=== PATIENT | male | born 1960 | race Caucasian/White ===

== ENCOUNTER 2020-05-15 07:58 | Day surgery (SDC) | payer MEDICAID ==
[~2020-05-15] VITALS: Ht 175.3 cm; Wt 116.2 kg
[2020-05-15] VITALS (7 sets, daily range): BP systolic 104–143; BP diastolic 61–85
[2020-05-15] MEDS ORDERED: normal saline 1000ml 1,000 ML IV ONE (08:35)
[2020-05-15] MEDS ORDERED: cefazolin/dext.iso 2gm/50ml 50 ML IV ONE (08:35)
[2020-05-15] MEDS ORDERED: VANCOMYCIN 1,500MG inj. 1,500 MG in normal saline 500ml IV soln 300 ML IV ONE (08:35)
[2020-05-15] MEDS ORDERED: midazolam 2 mg/2 ml injection ONE ×3 (08:43→09:38)
[2020-05-15] MEDS ORDERED: fentaNYL/PF 50MCG/1 ML 2ML syringe ONE (08:43)
[2020-05-15] MEDS ORDERED: ceFAZolin 2gm in dextrose, iso 50 ML IV ONE (08:43)
[2020-05-15] MEDS ORDERED: LIDOcaine 1% W/epiNEPHrine 1:100,000 20ml vial ONE (08:43)
[2020-05-15] MEDS ORDERED: TERA5CAP4 PO (08:44)
[2020-05-15] MEDS ORDERED: NAPR-56 PO (08:44)
[2020-05-15] MEDS ORDERED: SPIR25TA5 PO (08:44)
[2020-05-15] MEDS ORDERED: GABA300C PO (08:44)
[2020-05-15] MEDS ORDERED: ASPI-1265 PO (08:44)
[2020-05-15] MEDS ORDERED: ALB0.5UD IH (08:44)
[2020-05-15] MEDS ORDERED: FLO0.4C PO (08:44)
[2020-05-15] MEDS ORDERED: AMIT-189 PO (08:44)
[2020-05-15] MEDS ORDERED: AMLO10TA48 PO (08:44)
[2020-05-15] MEDS ORDERED: ATOR20TA PO (08:44)
[2020-05-15] MEDS ORDERED: METF500T PO (08:44)
[2020-05-15] MEDS ORDERED: BENA40TA73 PO (08:44)
[2020-05-15] MEDS ORDERED: CARV-50 PO (08:44)
[2020-05-15] MEDS ORDERED: OXYC-150 PO (08:44)
[2020-05-15] MEDS ORDERED: MORP20CA20 PO (08:44)
[2020-05-15] MEDS ORDERED: FURO-149 PO (08:44)
[2020-05-15] MEDS ORDERED: CITA40TA22 PO (08:44)
[2020-05-15] MEDS ORDERED: ZOLP5TAB8 PO (08:44)
[2020-05-15 09:20] LABS: BASOPHILS # (AUTO) 0.1 X10'3 (0-0.2); EOSINOPHILS # (AUTO) 0.2 X10'3 (0-0.9); EOSINOPHILS % (AUTO) 2.5 % (0-6); HEMATOCRIT 41.4 % (42.0-52.0); HEMOGLOBIN 14.2 g/dl (14.0-17.9); LYMPHOCYTES # (AUTO) 2.2 X10'3 (1.1-4.8); LYMPHOCYTES % (AUTO) 27.2 % (21-51); MEAN CORPUSCULAR HEMOGLOBIN 32.5 PG (27.0-31.0); MEAN CORPUSCULAR HGB CONC 34.3 g/dL (33.0-36.5); MEAN CORPUSCULAR VOLUME 94.9 FL (78-98); MEAN PLATELET VOLUME 8.7 FL (7.4-10.4); MONOCYTES # (AUTO) 0.8 X10'3 (0-0.9); MONOCYTES % (AUTO) 9.3 % (2-12); NEUTROPHILS # (AUTO) 4.9 X10'3 (1.8-7.7); PLATELET COUNT 198 X10'3 (140-440); RED BLOOD COUNT 4.37 X10'6 (4.70-6.10); RED CELL DISTRIBUTION WIDTH 13.6 % (11.5-14.5); WHITE BLOOD COUNT 8.2 X10'3 (4.5-11.0)
--- NOTE | 2020-05-15 09:20 | NUR ---
pt off floor for procedure.
[2020-05-15] MEDS ORDERED: ceFAZolin 1000mg inj ONE (09:28)
[2020-05-15 09:33] LABS: ALBUMIN 3.8 G/DL (3.4-5.0); ANION GAP 6 (8-16); BLOOD UREA NITROGEN 24 MG/DL (7-18); BUN/CREATININE RATIO 20.3 (5.4-32.0); CALCIUM 8.2 MG/DL (8.5-10.1); CHLORIDE 103 MMOL/L (99-107); CREATININE 1.18 MG/DL (0.60-1.10); GLUCOSE 99 MG/DL (70-104); MAGNESIUM 2.1 MG/DL (1.5-2.4); POTASSIUM 4.2 MMOL/L (3.5-5.1); SODIUM 138 MMOL/L (135-145); TOTAL CARBON DIOXIDE 29.1 MMOL/L (24-32); eGFR 63 ML/MIN
[2020-05-15] MEDS ORDERED: GABA-530 PO (11:44)
[2020-05-15] MEDS ORDERED: gabapentin 300mg capsule PO SCH (11:54)
[2020-05-15] MEDS ORDERED: oxyCODONE/APAP 10/325mg tablet PO PRN (11:55)
== END 2020-05-15 12:20 | disposition home or self-care (01) ==
LOC: SSTAY O 07:58
PROVIDERS: ATTEND Internal Medicine Cardiovascular Disease
DX: T82.897A Other specified complication of cardiac prosthetic devices, implants and grafts, initial encounter (principal); I10 Essential (primary) hypertension; E11.9 Type 2 diabetes mellitus without complications; E78.5 Hyperlipidemia, unspecified; G47.30 Sleep apnea, unspecified; Z79.899 Other long term (current) drug therapy; Z79.01 Long term (current) use of anticoagulants; Y83.8 Other surgical procedures as the cause of abnormal reaction of the patient, or of later complication, without mention of misadventure at the time of the procedure; Y92.89 Other specified places as the place of occurrence of the external cause
CPT/HCPCS: 33222; 36415; 80048; 83735; 85025; 85610; 87070; 93005; 99152; 99153; C1894; J0690; J2250; J3010; J7030; A4620; A6449

== ENCOUNTER 2020-05-29 10:28 | Day surgery (SDC) | payer MEDICAID ==
[~2020-05-29] VITALS: Ht 175.3 cm; Wt 117.0 kg
[2020-05-29] VITALS (8 sets, daily range): BP systolic 98–144; BP diastolic 62–86
[~2020-05-29 10:28] MED LIST: ALB0.5UD IH; AMIT-189 PO; AMLO10TA48 PO; ASPI-1265 PO; ATOR20TA PO; BENA40TA73 PO; CARV-50 PO; CITA40TA22 PO; FLO0.4C PO; FURO-149 PO; GABA-530 PO; METF500T PO; MORP20CA20 PO; NAPR-56 PO; OXYC-150 PO; SPIR25TA5 PO; TERA5CAP4 PO; ZOLP5TAB8 PO
[2020-05-29] MEDS ORDERED: cefazolin/dext.iso 2gm/50ml 100 ML IV ONE (10:45)
[2020-05-29 10:58] LABS: BASOPHILS # (AUTO) 0.1 X10'3 (0-0.2); BASOPHILS % (AUTO) 1.3 % (0-1); EOSINOPHILS # (AUTO) 0.2 X10'3 (0-0.9); EOSINOPHILS % (AUTO) 2.1 % (0-6); HEMATOCRIT 43.1 % (42.0-52.0); HEMOGLOBIN 14.7 g/dl (14.0-17.9); LYMPHOCYTES # (AUTO) 2.2 X10'3 (1.1-4.8); LYMPHOCYTES % (AUTO) 28.1 % (21-51); MEAN CORPUSCULAR HEMOGLOBIN 32.4 PG (27.0-31.0); MEAN CORPUSCULAR HGB CONC 34.2 g/dL (33.0-36.5); MEAN CORPUSCULAR VOLUME 94.7 FL (78-98); MEAN PLATELET VOLUME 9.2 FL (7.4-10.4); MONOCYTES # (AUTO) 0.7 X10'3 (0-0.9); MONOCYTES % (AUTO) 9.4 % (2-12); NEUTROPHILS # (AUTO) 4.6 X10'3 (1.8-7.7); NEUTROPHILS % (AUTO) 59.1 % (42-75); PLATELET COUNT 203 X10'3 (140-440); RED BLOOD COUNT 4.55 X10'6 (4.70-6.10); RED CELL DISTRIBUTION WIDTH 13.3 % (11.5-14.5); WHITE BLOOD COUNT 7.8 X10'3 (4.5-11.0)
[2020-05-29 11:23] LABS: ANION GAP 10 (8-16); BLOOD UREA NITROGEN 20 MG/DL (7-18); BUN/CREATININE RATIO 21.1 (5.4-32.0); CALCIUM 8.5 MG/DL (8.5-10.1); CHLORIDE 102 MMOL/L (99-107); CREATININE 0.95 MG/DL (0.60-1.10); GLUCOSE 105 MG/DL (70-104); MAGNESIUM 2.2 MG/DL (1.5-2.4); POTASSIUM 4.1 MMOL/L (3.5-5.1); SODIUM 137 MMOL/L (135-145); TOTAL CARBON DIOXIDE 25.4 MMOL/L (24-32); eGFR 81 ML/MIN
[2020-05-29] MEDS ORDERED: vancomycin 1,000mg inj ONE (11:31)
[2020-05-29] MEDS ORDERED: midazolam 2 mg/2 ml injection ONE ×8 (11:31→13:38)
[2020-05-29] MEDS ORDERED: fentaNYL/PF 50MCG/1 ML 2ML syringe ONE ×4 (11:31→13:08)
[2020-05-29] MEDS ORDERED: LIDOcaine 1% W/epiNEPHrine 1:100,000 20ml vial ONE (11:31)
[2020-05-29] MEDS ORDERED: proCHLORperazine 10 MG/2 ml inj ONE (12:05)
[2020-05-29] MEDS ORDERED: diphenhydrAMINE 50 mg/ml inj ONE (12:34)
[2020-05-29] MEDS ORDERED: HYDROmorphone 1 mg/ml syringe ONE ×2 (13:12→13:46)
[2020-05-29] MEDS ORDERED: normal saline 1000ml 1,000 ML IV ONE (14:30)
== END 2020-05-29 17:00 | disposition home or self-care (01) ==
LOC: SSTAY O 10:28
PROVIDERS: ATTEND Internal Medicine Cardiovascular Disease
DX: T82.7XXA Infection and inflammatory reaction due to other cardiac and vascular devices, implants and grafts, initial encounter (principal); I10 Essential (primary) hypertension; E11.9 Type 2 diabetes mellitus without complications; E78.5 Hyperlipidemia, unspecified; G47.30 Sleep apnea, unspecified; Z79.899 Other long term (current) drug therapy; Z79.01 Long term (current) use of anticoagulants; Z79.2 Long term (current) use of antibiotics; Y82.8 Other medical devices associated with adverse incidents; Y92.89 Other specified places as the place of occurrence of the external cause
CPT/HCPCS: 33233; 33235; 36415; 80048; 82948; 83735; 85025; 85610; 86885; 86900; 86901; 86920; 93005; 99152; 99153; C1769; C1773; C1894; J0780; J1170; J1200; J2250; J3010; J3370; A4620; A6258; A6260; A6449

== ENCOUNTER 2020-06-12 11:43 | Day surgery (SDC) | payer MEDICAID ==
[~2020-06-12] VITALS: Ht 170.2 cm; Wt 115.7 kg
[2020-06-12] MEDS ORDERED: VANCOMYCIN 1,500MG inj. 1,500 MG in normal saline 500ml IV soln 300 ML IV ONE (12:03)
[2020-06-12] MEDS ORDERED: normal saline 1000ml 1,000 ML IV SCH (12:05)
[2020-06-12] MEDS ORDERED: cefazolin/dext.iso 2gm/50ml 50 ML IV ONE (12:05)
[2020-06-12 12:45] VITALS: BP 110/67
--- NOTE | 2020-06-12 13:30 | NUR ---
Dr. Briseno at bedside. EKG reviewed, pt's heart rhythm NSR, no 3rd degree block. Procedure cancelled. Addendum: 06/12/20 at 1350 by Sarah Beck RN Dr. Briseno instructed pt to go to MD's office after discharge from hospital.
== END 2020-06-12 13:45 | disposition home or self-care (01) ==
LOC: SSTAY O 11:43
PROVIDERS: ATTEND Internal Medicine Cardiovascular Disease
DX: I44.0 Atrioventricular block, first degree (principal); Z53.8 Procedure and treatment not carried out for other reasons; R42 Dizziness and giddiness; Z95.0 Presence of cardiac pacemaker
CPT/HCPCS: 93005

== ENCOUNTER 2020-07-14 10:44 | Day surgery (SDC) | payer MEDICAID ==
[2020-07-14] VITALS (7 sets, daily range): BP systolic 92–133; BP diastolic 49–79
[~2020-07-14] VITALS: Ht 170.2 cm; Wt 115.0 kg
[2020-07-14] MEDS ORDERED: ceFAZolin 2gm in dextrose, iso 50 ML IV ONE ×2 (11:05→12:51)
[2020-07-14] MEDS ORDERED: VANCOMYCIN 1,500MG inj. 1,500 MG in normal saline 500ml IV soln 300 ML IV ONE (11:05)
[2020-07-14] MEDS ORDERED: normal saline 1000ml 1,000 ML IV SCH (11:05)
[2020-07-14 11:35] LABS: BASOPHILS # (AUTO) 0.1 X10'3 (0-0.2); BASOPHILS % (AUTO) 0.6 % (0-1); EOSINOPHILS # (AUTO) 0.1 X10'3 (0-0.9); EOSINOPHILS % (AUTO) 1.7 % (0-6); HEMATOCRIT 42.5 % (42.0-52.0); HEMOGLOBIN 14.6 g/dl (14.0-17.9); LYMPHOCYTES # (AUTO) 1.8 X10'3 (1.1-4.8); MEAN CORPUSCULAR HEMOGLOBIN 32.6 PG (27.0-31.0); MEAN CORPUSCULAR HGB CONC 34.4 g/dL (33.0-36.5); MEAN CORPUSCULAR VOLUME 94.6 FL (78-98); MONOCYTES # (AUTO) 0.7 X10'3 (0-0.9); MONOCYTES % (AUTO) 8.3 % (2-12); NEUTROPHILS # (AUTO) 5.6 X10'3 (1.8-7.7); NEUTROPHILS % (AUTO) 67.4 % (42-75); PLATELET COUNT 195 X10'3 (140-440); RED BLOOD COUNT 4.49 X10'6 (4.70-6.10); RED CELL DISTRIBUTION WIDTH 13.5 % (11.5-14.5); WHITE BLOOD COUNT 8.3 X10'3 (4.5-11.0)
[2020-07-14 11:53] LABS: ALBUMIN 4.2 G/DL (3.4-5.0); ANION GAP 12 (8-16); BLOOD UREA NITROGEN 30 MG/DL (7-18); BUN/CREATININE RATIO 19.6 (5.4-32.0); CALCIUM 8.8 MG/DL (8.5-10.1); CHLORIDE 101 MMOL/L (99-107); CREATININE 1.53 MG/DL (0.60-1.10); GLUCOSE 101 MG/DL (70-104); MAGNESIUM 2.1 MG/DL (1.5-2.4); POTASSIUM 3.8 MMOL/L (3.5-5.1); SODIUM 137 MMOL/L (135-145); TOTAL CARBON DIOXIDE 24.4 MMOL/L (24-32); eGFR 47 ML/MIN
[2020-07-14] MEDS ORDERED: fentaNYL/PF 50MCG/1 ML 2ML syringe ONE ×2 (12:51→13:28)
[2020-07-14] MEDS ORDERED: LIDOcaine 1% W/epiNEPHrine 1:100,000 20ml vial ONE (12:52)
[2020-07-14] MEDS ORDERED: vancomycin 1,000mg inj ONE (12:52)
[2020-07-14] MEDS ORDERED: midazolam 2 mg/2 ml injection ONE ×4 (12:52→13:50)
[2020-07-14] MEDS ORDERED: diphenhydrAMINE 50 mg/ml inj ONE (13:32)
== END 2020-07-14 16:00 | disposition home or self-care (01) ==
LOC: SSTAY O 10:44
PROVIDERS: ATTEND Internal Medicine Cardiovascular Disease
DX: I44.2 Atrioventricular block, complete (principal); Z98.890 Other specified postprocedural states; R42 Dizziness and giddiness; R00.1 Bradycardia, unspecified; I10 Essential (primary) hypertension; E11.9 Type 2 diabetes mellitus without complications; G47.30 Sleep apnea, unspecified
CPT/HCPCS: 33208; 36415; 71045; 80048; 82948; 83735; 85025; 85610; 93005; C1785; C1898; J1200; J2250; J3010; J3370; 99152; 99153; A4565; A4620; A6449

== ENCOUNTER 2021-11-09 06:47 | Day surgery (SDC) | payer MEDICAID ==
[2021-11-09] VITALS (20 sets, daily range): BP systolic 113–158; BP diastolic 75–110
[~2021-11-09] VITALS: Ht 175.3 cm; Wt 125.2 kg
[~2021-11-09 06:47] MED LIST changes: -MORP20CA20 PO
[2021-11-09] MEDS ORDERED: MIDAZolam 1mg/ml 10ml vial IV ONE ×2 (07:05→07:55)
[2021-11-09] MEDS ORDERED: normal saline 1000ml 1,000 ML IV SCH (07:05)
[2021-11-09] MEDS ORDERED: fentaNYL/PF 50MCG/1 ML 2ML syringe IV ONE ×2 (07:05→07:55)
[2021-11-09] MEDS ORDERED: MSC30T PO (07:27)
[2021-11-09] MEDS ORDERED: APIX5TAB3 PO (07:27)
[2021-11-09] MEDS ORDERED: DIGO125T PO (07:27)
[2021-11-09] MEDS ORDERED: DILT-35 PO (07:27)
[2021-11-09 07:39] LABS: BASOPHILS # (AUTO) 0.1 X10'3 (0-0.2); BASOPHILS % (AUTO) 1.1 % (0-1); EOSINOPHILS # (AUTO) 0.2 X10'3 (0-0.9); EOSINOPHILS % (AUTO) 2.3 % (0-6); HEMATOCRIT 47.4 % (42.0-52.0); HEMOGLOBIN 16.1 g/dl (14.0-17.9); LYMPHOCYTES # (AUTO) 2.1 X10'3 (1.1-4.8); LYMPHOCYTES % (AUTO) 27.2 % (21-51); MEAN CORPUSCULAR HEMOGLOBIN 32.7 PG (27.0-31.0); MEAN CORPUSCULAR HGB CONC 33.9 g/dL (33.0-36.5); MEAN CORPUSCULAR VOLUME 96.3 FL (78-98); MEAN PLATELET VOLUME 9.3 FL (7.4-10.4); MONOCYTES # (AUTO) 0.6 X10'3 (0-0.9); NEUTROPHILS # (AUTO) 4.7 X10'3 (1.8-7.7); NEUTROPHILS % (AUTO) 61.4 % (42-75); PLATELET COUNT 197 X10'3 (140-440); RED BLOOD COUNT 4.93 X10'6 (4.70-6.10); RED CELL DISTRIBUTION WIDTH 13.8 % (11.5-14.5); WHITE BLOOD COUNT 7.6 X10'3 (4.5-11.0)
[2021-11-09 07:54] LABS: ALBUMIN 4.4 G/DL (3.4-5.0); ANION GAP 11 (8-16); BLOOD UREA NITROGEN 20 MG/DL (7-18); BUN/CREATININE RATIO 16.3 (5.4-32.0); CALCIUM 8.7 MG/DL (8.5-10.1); CHLORIDE 104 MMOL/L (99-107); CREATININE 1.23 MG/DL (0.60-1.10); GLUCOSE 152 MG/DL (70-104); MAGNESIUM 2.1 MG/DL (1.5-2.4); SODIUM 143 MMOL/L (135-145); TOTAL CARBON DIOXIDE 27.7 MMOL/L (24-32); eGFR 60 ML/MIN
== END 2021-11-09 10:40 | disposition home or self-care (01) ==
LOC: SSTAY O 06:47
PROVIDERS: ATTEND Internal Medicine Cardiovascular Disease
DX: I48.91 Unspecified atrial fibrillation (principal); Z79.899 Other long term (current) drug therapy
CPT/HCPCS: 36415; 80048; 82948; 83735; 85025; 85610; 92960; 93005; 94760; 94799; J2250; J3010

== ENCOUNTER 2024-06-14 06:09 | Inpatient (IN) | payer MEDICAID ==
[2024-06-08 15:08] LABS: BASOPHILS # (AUTO) 0.1 X10'3 (0-0.2); BASOPHILS % (AUTO) 0.5 % (0-1); EOSINOPHILS # (AUTO) 0.1 X10'3 (0-0.9); EOSINOPHILS % (AUTO) 1.3 % (0-6); LYMPHOCYTES # (AUTO) 1.4 X10'3 (1.1-4.8); LYMPHOCYTES % (AUTO) 13.9 % (21-51); MEAN CORPUSCULAR HEMOGLOBIN 31.2 PG (27.0-31.0); MEAN CORPUSCULAR HGB CONC 33.2 g/dL (33.0-36.5); MEAN PLATELET VOLUME 9.8 FL (7.4-10.4); MONOCYTES # (AUTO) 0.8 X10'3 (0-0.9); MONOCYTES % (AUTO) 8.2 % (2-12); NEUTROPHILS # (AUTO) 7.7 X10'3 (1.8-7.7); NEUTROPHILS % (AUTO) 76.1 % (42-75); PRE OP HEMATOCRIT 47.7 % (42.0-52.0); PRE OP HEMOGLOBIN 15.8 g/dL (14.0-17.9); PRE OP PLATELET COUNT 234 X10'3 (140-440); PRE OP WHITE BLOOD COUNT 10.1 10'3 (4.8-10.8); RED BLOOD COUNT 5.07 X10'6 (4.70-6.10); RED CELL DISTRIBUTION WIDTH 16.4 % (11.5-14.5)
[2024-06-08 15:16] LABS: ALKALINE PHOSPHATASE 511 IU/L (46-116); BLOOD UREA NITROGEN 19 MG/DL (7-18); BUN/CREATININE RATIO 13.3 (10.0-20.0); CHLORIDE 102 MMOL/L (99-107); CREATININE 1.43 MG/DL (0.60-1.10); PRE OP ANION GAP 9 (8-16); PRE OP BILIRUB, TOTAL 0.5 MG/DL (0.0-1.0); PRE OP GLUCOSE 113 MG/DL (70-104); PRE OP SODIUM 137 MMOL/L (135-145); TOTAL CARBON DIOXIDE 25.8 MMOL/L (24-32); TOTAL PROTEIN 7.9 G/DL (6.4-8.2); eGFR 50 ML/MIN
[2024-06-08 15:18] LABS: PRE OP ALT 141 U/L (30-65); PRE OP AST 70 U/L (10-37); PRE OP POTASSIUM 4.6 MMOL/L (3.4-5.1)
[2024-06-14] VITALS (28 sets, daily range): BP systolic 85–143; BP diastolic 51–79; PULSE 60–76; RESP 10–18; TEMP 97.4–98.1; O2SAT 91–100
[~2024-06-14] VITALS: Ht 170.2 cm; Wt 110.7 kg
[2024-06-14] MEDS: cefazolin 2gm/D5W 100mL 100 ML IV ONE (05:30)
[2024-06-14] MEDS: albuterol 2.5 MG/3 ML nebule NEB ONE (05:30)
[~2024-06-14 06:09] MED LIST changes: -ALB0.5UD IH; +ALBU8HFA INH; +AMI200T PO; -AMIT-189 PO; +AMLO10TA PO; -AMLO10TA48 PO; +APIX5TAB3 PO; -ASPI-1265 PO; +BENA20TA82 PO; -BENA40TA73 PO; +BUPR1PAT10 TOP; -CARV-50 PO; +CETI10TA15 PO; +CHOL20004 PO; -CITA40TA22 PO; +DILT360C29 PO; +FLUT1BLS4 INH; -FURO-149 PO; -GABA-530 PO; +GABA800T11 PO; +IPRA30SP BOTHNARES; -METF500T PO; +MSC30T PO; -NAPR-56 PO; +OMEP20CA16 PO; +SEMA0.258; +TEST200V33 IM; +VARE1TAB24 PO; -ZOLP5TAB8 PO
[2024-06-14] MEDS: famotidine 20mg tablet PO ONE (07:35)
[2024-06-14] MEDS: ringers solution, lacted 1,000 ML IV SCH ×2 (07:36→18:58)
[2024-06-14] MEDS: tranexamic acid 650mg tablet PO ONE (07:36)
[2024-06-14] MEDS: vancomycin/NS 1 GM in NS 250 ML IV ONE (07:36)
[2024-06-14] MEDS: ROPIVAcaine 0.5% (5mg/ml) 30ml vial ONE (08:39)
[2024-06-14] MEDS: mineral oil 10ml sterile, topical TP ONE (08:39)
[2024-06-14] MEDS: BUPIVACAINE/MELOXICAM 14 ML VIAL IL ONE (08:39)
[2024-06-14] MEDS ORDERED: MIDAZolam 1 MG/ML 5ML VIAL ONE (09:47)
[2024-06-14] MEDS ORDERED: fentaNYL/PF 50MCG/1 ML 2ML syringe ONE (09:47)
[2024-06-14] MEDS ORDERED: proCHLORperazine 10 MG/2 ml inj IV PRN (09:55)
[2024-06-14] MEDS ORDERED: ondansetron/PF 4mg/2ml inj IV PRN ×2 (09:55→12:55)
[2024-06-14] MEDS ORDERED: morphine 2 MG/ML inj. syringe IV PRN (09:55)
[2024-06-14] MEDS ORDERED: meperidine/PF 25mg/ml syringe IV PRN ×2 (09:55)
[2024-06-14] MEDS ORDERED: BUPIVAcaine/dex-water/PF 7.5 mg/ml 2ml ampul ONE (10:17)
[2024-06-14] MEDS ORDERED: propofol inj 20 ML IV ONE (10:42)
[2024-06-14] MEDS ORDERED: ROPIVAcaine 0.5% (5mg/ml) 30ml vial ONE (12:17)
[2024-06-14] MEDS ORDERED: morphine ER 30mg tablet PO PRN (12:50)
[2024-06-14] MEDS ORDERED: magnesium hydroxide 30ml (MOM) UD suspension PO PRN (12:55)
[2024-06-14] MEDS ORDERED: naloxone 0.4 mg/ml inj IV PRN (12:55)
[2024-06-14] MEDS ORDERED: diphenhydrAMINE 25mg capsule PO PRN ×2 (12:55)
[2024-06-14] MEDS ORDERED: oxyCODONE IR 5mg (immed. release) tablet PO PRN (12:55)
[2024-06-14] MEDS ORDERED: bisacodyl 10mg suppository rectal RC PRN (12:55)
[2024-06-14] MEDS ORDERED: acetaminophen 325mg tablet PO PRN (12:55)
[2024-06-14] MEDS ORDERED: HYDROmorphone inj. 0.5 MG/0.5 ML DISP.SYRIN IV PRN (12:55)
[2024-06-14] MEDS ORDERED: ipratropium 0.03% 30ML nasal spray NS SCH (13:00)
[2024-06-14] MEDS ORDERED: ipratropium 0.06% nasal spray 15ml NS SCH (13:22)
[2024-06-14] MEDS: meperidine/PF 25mg/ml syringe IV PRN (14:31)
[2024-06-14] MEDS: morphine 4 MG/ML inj SYRINge IV PRN (14:43)
[2024-06-14] MEDS: oxyCODONE IR 5mg (immed. release) tablet PO PRN (14:58)
[2024-06-14] MEDS ORDERED: ceFAZolin/D5W- 1GM premix 50 ML IV SCH (16:00)
[2024-06-14] MEDS ORDERED: HYDROmorphone/PF 0.2 MG/ML SYRINGE IV PRN (16:10)
[2024-06-14] MEDS: HYDROmorphone/PF 0.2 MG/ML SYRINGE IV PRN (16:19)
[2024-06-14] MEDS: acetaminophen 1,000mg/100ml IV 100 ML IV SCH (16:19)
[2024-06-14] MEDS: acetaminophen 1,000mg/100ml IV 100 ML IV ONE (16:46)
[2024-06-14] MEDS: HYDROmorphone/PF 0.2 MG/ML SYRINGE ONE (16:47)
[2024-06-14] MEDS: TESTOSTERONE CYPIONATE 200 MG/ML VIAL IM SCH (18:58)
[2024-06-14] MEDS: BUPRENORPHINE TOP SCH (18:59)
[2024-06-14] MEDS: acetaminophen 325mg tablet PO SCH (19:01)
[2024-06-14] MEDS: ceFAZolin/D5W- 1GM premix 50 ML IV SCH (19:16)
[2024-06-14] MEDS: potassium cl 20mEq in 1/2 NS 1,000 ML IV SCH (19:17)
[2024-06-14] MEDS: amLODIPine 5mg tablet PO SCH (19:56)
[2024-06-14] MEDS: terazosin 5mg capsule PO SCH (19:57)
[2024-06-14] MEDS: sennosides 8.6mg tablet PO SCH (19:57)
[2024-06-14] MEDS: cholecalciferol (vitamin D3) 1,000 unit (25mcg) tablet PO SCH (19:57)
[2024-06-14] MEDS: atorvastatin 20mg tablet PO SCH (19:58)
[2024-06-14] MEDS: vancomycin/NS 1 GM ADD-VANTAGE 250 ML IV SCH (19:58)
[2024-06-14] MEDS: ipratropium 0.06% nasal spray 15ml NS SCH (21:00)
[2024-06-14] MEDS: HYDROmorphone 1 mg/ml syringe IV PRN (21:02)
[2024-06-15] VITALS (8 sets, daily range): BP systolic 130–154; BP diastolic 61–73; PULSE 80–91; RESP 16–20; TEMP 96.1–98.5; O2SAT 92–97
[2024-06-15 05:47] LABS: BASOPHILS % (AUTO) 0.3 % (0-1); EOSINOPHILS % (AUTO) 0.5 % (0-6); HEMATOCRIT 40.2 % (42.0-52.0); HEMOGLOBIN 13.5 g/dl (14.0-17.9); LYMPHOCYTES # (AUTO) 1.2 X10'3 (1.1-4.8); LYMPHOCYTES % (AUTO) 11.8 % (21-51); MEAN CORPUSCULAR HEMOGLOBIN 30.9 PG (27.0-31.0); MEAN CORPUSCULAR HGB CONC 33.6 g/dL (33.0-36.5); MEAN PLATELET VOLUME 9.2 FL (7.4-10.4); MONOCYTES # (AUTO) 1.1 X10'3 (0-0.9); MONOCYTES % (AUTO) 10.4 % (2-12); PLATELET COUNT 180 X10'3 (140-440); RED BLOOD COUNT 4.37 X10'6 (4.70-6.10); RED CELL DISTRIBUTION WIDTH 15.6 % (11.5-14.5); WHITE BLOOD COUNT 10.4 X10'3 (4.5-11.0)
[2024-06-15] MEDS: gabapentin 400mg capsule PO PRN (05:51)
[2024-06-15 06:06] LABS: ANION GAP 5 (8-16); CHLORIDE 98 MMOL/L (99-107); POTASSIUM 4.6 MMOL/L (3.5-5.1); SODIUM 130 MMOL/L (135-145)
[2024-06-15] MEDS ORDERED: DILTIAZEM HCL PO SCH (08:00)
[2024-06-15] MEDS: aspirin 325mg tablet PO SCH (08:33)
[2024-06-15] MEDS: tamsulosin 0.4mg capsule PO SCH (08:33)
[2024-06-15] MEDS: cetirizine 10mg tablet PO SCH (08:33)
[2024-06-15] MEDS: lisinopril 20mg tablet PO SCH (08:33)
[2024-06-15] MEDS: amiodarone 200mg tablet PO SCH (08:34)
[2024-06-15] MEDS: apixaban 5mg tablet PO SCH (08:34)
[2024-06-15] MEDS: pantoprazole 40mg Tablet.DR PO SCH (08:35)
[2024-06-15] MEDS: spironolactone 25 MG tablet PO SCH (08:36)
[2024-06-15] MEDS ORDERED: diltiazem CD 180mg cap (once-daily) PO SCH (08:50)
[2024-06-15] MEDS: diltiazem CD 180mg cap (once-daily) PO SCH (10:12)
[2024-06-15] MEDS: acetaminophen 1,000mg/100ml IV 100 ML IV ONE (16:10)
[2024-06-15] MEDS: celeCOXIB 100mg capsule PO SCH (20:39)
[2024-06-16] VITALS (7 sets, daily range): BP systolic 125–133; BP diastolic 68–70; PULSE 70–81; RESP 14–20; TEMP 96.1–98.1; O2SAT 92–96
[2024-06-16 06:05] LABS: BASOPHILS % (AUTO) 0.2 % (0-1); EOSINOPHILS % (AUTO) 0.1 % (0-6); HEMATOCRIT 37.3 % (42.0-52.0); HEMOGLOBIN 12.4 g/dl (14.0-17.9); LYMPHOCYTES % (AUTO) 16.2 % (21-51); MEAN CORPUSCULAR HEMOGLOBIN 30.7 PG (27.0-31.0); MEAN CORPUSCULAR HGB CONC 33.2 g/dL (33.0-36.5); MEAN CORPUSCULAR VOLUME 92.3 FL (78-98); MEAN PLATELET VOLUME 9.5 FL (7.4-10.4); MONOCYTES # (AUTO) 1.6 X10'3 (0-0.9); MONOCYTES % (AUTO) 13.4 % (2-12); NEUTROPHILS # (AUTO) 8.6 X10'3 (1.8-7.7); NEUTROPHILS % (AUTO) 70.1 % (42-75); PLATELET COUNT 195 X10'3 (140-440); RED BLOOD COUNT 4.04 X10'6 (4.70-6.10); RED CELL DISTRIBUTION WIDTH 15.8 % (11.5-14.5); WHITE BLOOD COUNT 12.3 X10'3 (4.5-11.0)
[2024-06-16] MEDS: albuterol 2.5 MG/3 ML nebule NEB PRN (12:37)
[2024-06-16] MEDS ORDERED: acetaminophen 325mg tablet PO PRN (18:20)
[2024-06-20] MEDS ORDERED: Semaglutide (Ozempic) 0.5 MG SQ SCH (12:50)
== END 2024-06-16 15:42 | disposition home or self-care (01) | DRG 326 ==
LOC: PAS IN 06:09 → EDSTATUS 09:15 → ORTHO 4S 17:06
PROVIDERS: ADMIT Orthopaedic Surgery; ATTEND Orthopaedic Surgery
PROC: 8E0Y0CZ Robotic Assisted Procedure of Lower Extremity, Open Approach (ICD-10-PCS; 2024-06-14)
PROC: 8E0YXBZ Computer Assisted Procedure of Lower Extremity (ICD-10-PCS; 2024-06-14)
PROC: 0SRD0J9 Replacement of Left Knee Joint with Synthetic Substitute, Cemented, Open Approach (ICD-10-PCS; principal; 2024-06-14 10:17)
PROC: 5A09357 Assistance with Respiratory Ventilation, Less than 24 Consecutive Hours, Continuous Positive Airway Pressure (ICD-10-PCS; 2024-06-15)
PROC: 5A09357 Assistance with Respiratory Ventilation, Less than 24 Consecutive Hours, Continuous Positive Airway Pressure (ICD-10-PCS; 2024-06-16)
DX: M17.12 Unilateral primary osteoarthritis, left knee (principal)
CPT/HCPCS: 36415; 80051; 80053; 82948; 85025; 87081; 94640; 94760; 97110; 97116; 97161; 97530; A4215; A4615; A7000; C1713; C1776; G0378; J0131; J0690; J1171; J2175; J2250; J2270; J2704; J2795; J3010; J3370; J3480; J3490; J7120